=== PATIENT | male | born 1975 | race Caucasian/White ===

== ENCOUNTER 2017-03-18 11:45 | Emergency (ER) | payer OTHER ==
--- NOTE | 2017-03-18 13:28 | UC ---
brent Suero Timothy, scribed for Bell Haley MD on 03/18/17 at 1301 . Dizzy HPI HPI Summary: Sterling Robbins is a 41 yo male presenting to [facility] with fullness in his head, inability to focus, and slight numbness ad tingling to bilateral upper and lower extremities for the past 5 days. Pt states sx are intermittent. Pt without current sx but states feels anxious when sx occur. Pt denies cp, sob, abd pain. no n/v/d. No fevers, chills, rash. No YIP, vision changes. no ear congestion, sinus pressure, sore throat. No weakness. No change in speech, word finding. Pt was worked up in [place] 2 days ago for similar sx as well as palpitation. Upon presentation to [facility], pt was noted to be tachycardic. These sx resolved. Pt states had neg work-up. Pt drinks 1-2 caffeine today. Pt with some increased stress as moving to [place] with family - changing jobs. No other changes to activity or appetitie. Pt does exercise vigorously - rode bike yesterday without difficulty. He states his Sx resolved after his visit to the ER, but have reappeared this morning. No sx at present. He notes that Sx usually reappear during the late morning, before lunch. No change in diet. He denies any ear pain, sinus pressure, postnasal drip, rash, balance difficulty. He denies any travel out of the country. No OTC med. Pt notes his BP is high at baseline. States used to take meds for it but not current. No h/o cardiac dx, cva. No tobacco. Normal cholesterol. No family hx. No DM. He denies Hx of anxiety, or any recent trauma. PMHx. Pt medication list reviewed this visit. REviewed paperwork from [facility]: pt had cxr, cbc. cmp, tsh, ,trop, ekg - all reported neg. Pt was intially tachycardic to 136 upon arrival to ED - History Of Current Complaint Chief Complaint: UCDizziness Stated Complaint: DIZZY Time Seen by Provider: 03/18/17 12:51 Hx Obtained From: Patient Onset/Duration: Sudden Onset, Lasting Hours, Still Present Timing: Constant Severity Initially: Moderate Severity Currently: Moderate Character: Lightheaded, Dizzy Associated Signs And Symptoms: Positive: Nausea - Allergies/Home Medications Allergies/Adverse Reactions: Allergies Allergy/AdvReac Type Severity Reaction Status Date / Time No Known Allergies Allergy Verified 03/18/17 11:49 Home Medications: Home Medications NK [No Home Medications Reported] 03/18/17 [History Confirmed 03/18/17] PMH/Surg Hx/FS Hx/Imm Hx Previously Healthy: Yes Cardiovascular History: Hypertension - Surgical History Surgical History: None - Family History Known Family History: Negative: Cardiac Disease, Hypertension, Diabetes - Social History Occupation: Employed Full-time Lives: With Family Alcohol Use: Occasionally Substance Use Type: None Smoking Status (MU): Never Smoked Tobacco Review of Systems Constitutional: Negative Skin: Negative Eyes: Negative ENT: Negative Respiratory: Negative Cardiovascular: Negative Gastrointestinal: Nausea Genitourinary: Negative Motor: Negative Neurovascular: Negative Musculoskeletal: Negative Neurological: Paresthesia - bilateral upper and lower extremities, Numbness - bilateral upper and lower extremities, Other - inability to focus Psychological: Negative All Other Systems Reviewed And Are Negative: Yes Physical Exam Triage Information Reviewed: Yes Appearance: Well-Appearing, No Pain Distress, Well-Nourished, Other: - slightly anxious, improves through H+P Vital Signs: Initial Vital Signs Temp 98.3 F 03/18/17 11:51 Pulse 94 03/18/17 11:51 Resp 16 03/18/17 11:51 BP 179/92 03/18/17 11:51 Pulse Ox 100 03/18/17 11:51 Vital Signs Reviewed: Yes Eye Exam: Normal Eyes: Positive: Conjunctiva Clear. Negative: Conjunctiva Inflamed, Discharge ENT Exam: Normal ENT: Positive: Normal ENT inspection, Hearing grossly normal, Pharynx normal, TMs normal Dental Exam: Normal Neck exam: Normal Neck: Positive: Supple, Nontender, No Lymphadenopathy Respiratory Exam: Normal Respiratory: Positive: Chest non-tender, Lungs clear, Normal breath sounds, No respiratory distress, No accessory muscle use Cardiovascular Exam: Normal Cardiovascular: Positive: RRR, No Murmur, Pulses Normal, Other: - no bruits b/l Abdominal Exam: Normal Abdomen Description: Positive: Nontender, No Organomegaly, Soft Bowel Sounds: Positive: Present Musculoskeletal Exam: Normal Musculoskeletal: Positive: Strength Intact, ROM Intact, No Edema Neurological Exam: Normal Neurological: Positive: Alert, Muscle Tone Normal, Other: - NIH 0 CN 2- 12 intact and full Full aROM x 4 ext 2+ bicep, patellar without clonus full sensation x 4 b/l equal + FNF + heel shiin neg rhomberg + heel/toe walking no dysrthria Psychological Exam: Normal Skin Exam: Normal Re-Evaluation - Re-Evaluation First Eval Re-Evaluation Time: 13:21 Change: Unchanged Comment: Discussed possible courses of Tx. Pt is agreeable to be discharged. Dizzy Course/Dx - Course Course Of Treatment: Sterling Robbins is a 41 yo male presenting to [facility] with episodes of decreased ability to focus, and slight numbness/tingling to bilateral upper and lower extremities intermittently for the past 5 days. Pt with mild anxiousness during these episode Pt was seen in [place] ED and had standard labs, troponinin, TSH, EKG performed, and was d/c after 4 hours with Dx of palpitations with heart rate 136. Pt BP noted at 179/92, Pt advised to follow up with his PCP. His blood glucose is 115. Discussed differentials and possible courses of Tx with Pt and his at [facility]. Pt with a non concerning exam and currently no symptoms. Pt without known risk factors other than elevated bp. D/w pt and at length treatment options including transfer to ED for additional testing vs f/u PCP. Risks and benefits of both discussed. After much discussion, pt elected to schedule f/u with pcp. Pt and spouse advised 911 or ED if sx recur, any changes, or change of decision. Pt and comfortable and in agreement with plan - Differential Dx/Diagnosis Provider Diagnoses: intermittent paresthesias Discharge - Discharge Plan Condition: Stable Disposition: HOME Patient Education Materials: Hypertension (ED), Dizziness (ED) Referrals: Brennon Engle DO [Doctor of Osteopathy] - 2 Days Additional Instructions: Contact your doctor today to schedule a follow-up appointment this week - this is very important Stay well hydrated - drink plenty of non-alcoholic, non-caffinated beverages Your blood pressure was elevated today. It was also noted to be elevated at your hospital visit in [facility]. You must see your primary doctor and discuss treatment options If your symptoms return, you develop headache, vision changes, vomiting, fever, chills, rash, chest pain, shortness of breath or any other symptoms, contact 911 or go to the emergency department The documentation as recorded by the brent benito Timothy accurately reflects the service I personally performed and the decisions made by me, Bell Haley MD.
[2017-03-18 13:41] VITALS: BP 141/92
== END 2017-03-18 13:42 | disposition home or self-care (01) ==
LOC: UCEAST 11:45
DX: F41.9 Anxiety disorder, unspecified (principal); R11.0 Nausea; R20.2 Paresthesia of skin
CPT/HCPCS: 99201; G0463

== ENCOUNTER 2017-03-20 17:16 | Emergency (ER) | payer OTHER ==
[2017-03-20 18:48] LABS: Hematocrit 45 % (42-52); Hemoglobin 15.4 g/dl (14.0-18.0); Mean Corpuscular HGB Conc 34 g/dl (31-36); Mean Corpuscular Hemoglobin 32 pg (27-31); Mean Corpuscular Volume 93 fL (80-94); Mean Platelet Volume 8 um3 (7.4-10.4); Red Blood Count 4.81 10^6/ul (4.0-5.4); Red Cell Distribution Width 13 % (10.5-15); White Blood Count 9.3 10^3/ul (3.5-10.8)
[2017-03-20 19:06] LABS: Albumin 4.8 g/dL (3.2-5.2); BUN/Creatinine Ratio 13.6 (8-20); Calcium 9.7 mg/dL (8.6-10.3); EGFR African American 134.4 (>60); EGFR Non-African American 104.5 (>60); Globulin 2.5 g/dL (2-4); Potassium 3.7 mmol/L (3.5-5.0); Total Protein 7.3 g/dL (6.4-8.9)
[2017-03-20] MEDS ORDERED: Metoprolol Tartrate TAB* 25 MG PO ONE (20:18)
[2017-03-20] MEDS ORDERED: Iohexol 350* (CONTRAST) 500 ML MDV IV ONE (20:19)
--- NOTE | 2017-03-20 21:21 | RAD ---
Indication: Tachycardia. Recent travel. Assess for PE. Comparison: No relevant prior exams available on the [facility] PACS for comparison. Technique: Noncontrast CT vertex of skull through foramen magnum. Report: The sulci, ventricles, and basal cisterns are normal for age. Luke matter white matter differentiation is preserved without evidence for edema. No intra or extra axial hemorrhage, mass, or fluid collection detected. Unremarkable visualized orbital contents. Unremarkable calvarium and skull base. Unremarkable scalp. The visualized paranasal sinuses and mastoid air spaces are clear. IMPRESSION: Negative exam. Unenhanced head CT.
--- NOTE | 2017-03-20 21:27 | RAD ---
INDICATION: Tachycardia. Recent travel. Assess for pulmonary embolism. COMPARISON: None. TECHNIQUE: Multidetector CT images were obtained from the lung apices to the upper abdomen with 66 mL Omnipaque 300 IV contrast. Pulmonary angiogram protocol. Multiplanar reformation including with maximum intensity projection. REPORT: Clear lungs and pleural spaces. Negative for pneumothorax. Negative for thoracic lymphadenopathy, cardiomegaly, pericardial effusion. Normal diameter thoracic aorta without suspicious finding. No filling defects are identified from the main to the subsegmental pulmonary arteries to indicate presence of a pulmonary embolism. Unremarkable Limited images through the upper abdomen. Negative for suspicious thoracic osseous lesions. IMPRESSION: 1. No evidence for pulmonary embolism. 2. No evidence for acute intrathoracic disease.
[2017-03-20 21:35] VITALS: BP 139/94
[2017-03-20 22:50] LABS: TSH (Thyroid Stimulating Horm) 1.94 mcIU/mL (0.34-5.60)
[2017-03-20 22:57] LABS: Free T4 0.89 ng/dL (0.61-1.12)
--- NOTE | 2017-03-28 14:46 | ED ---
Raquel Suero Thomas, scribed for Vikas Forrester MD on 03/20/17 at 1850 . Hypertension - HPI Summary HPI Summary: The pt is a 41 y/o M accompanied by his MIKALA c/o high BP for the last 5 days. Earlier today, his BP was 210/130. He has been in 3 emergency rooms in the last five days. He flew to [place] 6 days ago. He was a patient at the [facility] ED five days ago, where he had a high pulse rate and was discharged. He had a D-dimer and Troponin taken there that were negative. Two days ago, he went to Urgent Care, where he was seen by Dr. Bell Haley and he was discharged home. Today, he went to his PCP Dr. Engle. Earlier in the day, his BP was 210/130 when measured at home. At Dr. You office, his BP was measured 130/80. Normally, the pts BP is 140/80. He is returning for cholesterol tests in 3 days. Today, he toured [place] with his friends and was walking for about an hour. When he returned home, his BP was elevated. He then took another BP reading, which revealed elevated BP. He denies any imaging that was performed recently. He has used his blood pressure problem manager prior to using it the last week. He is a new patient at [facility] (joined last fall). Pt additionally c/o racing heart rate (onset 5 days ago), doesnt feel well, lightheadedness (characterized as Im out of it), anxiety (attributed to many recent ED visits), and tingling in feet and fingers. Pt denies CP, SOB, blurred vision, SOB, trouble exerting self, nausea, and unsteadiness on feet. He had half a cup of coffee today. PMHx: HLD. PSHx: none. SHx: no smoking, occasional alcohol, no illicit drugs, no energy drinks. FHx: HTN, NE. He has never been to a therapist, has never had panic attacks, and has not had prior episodes of heart racing. 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 Ten years ago, he was on beta-denilson but was taken off around 10 years ago. - History of Current Complaint Chief Complaint: EDHypertension Stated Complaint: HIGH BLOOD PRESSURE Time Seen by Provider: 03/20/17 18:28 Hx Obtained From: Patient, Family/Field Irrigation Worker - in the room Onset/Duration: Started Days Ago - 5 days Timing: Intermittent Aggravating Factor(s): Nothing Alleviating Factor(s): Nothing Associated Signs & Symptoms: Anxiety/Stress - attributed to many recent ED visits, Numbness - fingers, feet, Tingling - fingers, feet, Other: - POS: racing heart rate (onset 5 days ago), doesnt feel well, lightheadedness ( characterized as Im out of it); NEG: CP, SOB, blurred vision, SOB, trouble exerting self, nausea, and unsteadiness on feet - Allergies/Home Medications Allergies/Adverse Reactions: Allergies Allergy/AdvReac Type Severity Reaction Status Date / Time No Known Allergies Allergy Verified 03/18/17 11:49 PMH/Surg Hx/FS Hx/Imm Hx Previously Healthy: No Endocrine/Hematology History: Denies: Hx Diabetes, Hx Thyroid Disease Cardiovascular History: Reports: Hx Hypercholesterolemia Denies: Hx Hypertension Respiratory History: Denies: Hx Asthma, Hx Chronic Obstructive Pulmonary Disease (COPD) GI History: Denies: Hx Ulcer - Surgical History Surgery Procedure, Year, and Place: none Infectious Disease History: No Infectious Disease History: Denies: Hx Hepatitis, Hx Human Immunodeficiency Virus (HIV), Traveled Outside the [place] in Last 30 Days - Family History Known Family History: Negative: Cardiac Disease, Hypertension, Diabetes - Social History Alcohol Use: Occasionally Alcohol Amount: 1-2 glasses wine a night Substance Use Type: Reports: None Smoking Status (MU): Never Smoked Tobacco Review of Systems Constitutional: Negative Negative: Fever, Chills Eyes: Negative Negative: Blurred Vision, Erythema - eyes ENT: Negative Negative: Sore Throat Positive: Palpitations - characterized as "racing heart rate", Other - POS: elevated BP (intermittent, began 5 days ago). Negative: Chest Pain Respiratory: Negative Negative: Shortness Of Breath, Cough, Other - NEG: trouble exerting self Gastrointestinal: Negative Negative: Abdominal Pain, Vomiting, Nausea Genitourinary: Negative Negative: dysuria, hematuria Musculoskeletal: Negative Negative: Myalgia, Edema - leg Skin: Negative Negative: Rash Neurological: Other - POS: tingling in feet and fingers, lightheadedness; NEG: dizziness, unsteadiness on feet Positive: Anxious - attributed to recent health problems All Other Systems Reviewed And Are Negative: Yes Physical Exam - Summary Physical Exam Summary: Constitutional: Well-developed, Well-nourished, Alert. (-) Distressed Skin: Warm, Dry HENT: Eyes: Conjunctiva normal Neck: Musculoskeletal ROM normal neck. (-) JVD, (-) Stridor, (-) Tracheal deviation Cardio: Rhythm regular, rate normal, Heart sounds normal; Intact distal pulses; The pedal pulses are 2+ and symmetric. Radial pulses are 2+ and symmetric. (-) Murmur Pulmonary/Chest wall: Effort normal. (-) Respiratory distress, (-) Wheezes, (-) Rales Abd: Soft. (-) Tenderness, ~(-) Distension, (-) Guarding, (-) Rebound Musculoskeletal: (-) Edema Lymph: (-) Cervical adenopathy Neuro: Alert, Oriented x3, Strength normal, Cranial nerves II-XII are grossly intact. (-) Dysmetria, (-) Nystagmus, (-) Ataxia by finger to nose testing, (-) Sensory deficit. Psych: Mood and affect Normal Triage Information Reviewed: Yes Vital Signs On Initial Exam: Initial Vitals Temp Pulse Resp BP Pulse Ox 98.4 F 98 20 155/107 96 03/20/17 17:20 03/20/17 17:20 03/20/17 17:20 03/20/17 17:20 03/20/17 17:20 Vital Signs Reviewed: Yes - Abelardo Coma Scale Coma Scale Total: 15 Diagnostics - Vital Signs Vital Signs Temp Pulse Resp BP Pulse Ox 03/20/17 18:33 105 24 99 03/20/17 17:20 98.4 F 98 20 155/107 96 - Laboratory Result Diagrams: 03/20/17 18:40 03/20/17 18:40 Lab Statement: Any lab studies that have been ordered have been reviewed, and results considered in the medical decision making process. - CT Brain CT CT Interpretation: No Acute Changes - Negative exam on unenhanced head CT. CT Interpretation Completed By: Radiologist CTA Chest/Thorax CT Interpretation: No Acute Changes - 1. No evidence for pulmonary embolism. 2. No evidence for acute intrathoracic disease CT Interpretation Completed By: Radiologist - EKG 18:35 Cardiac Rate: Tachycardia - 107 BPM EKG Interpretation: Sinus tachycardia. No STEMI Re-Evaluation - Re-Evaluation First Eval Re-Evaluation Time: 21:49 Change: Unchanged Comment: Discussed the patient's results with him. Hypertension Course/Dx - Course Assessment/Plan: The pt is a 41 y/o M accompanied by his MIKAAL c/o high BP for the last 5 days. Earlier today, his BP was 210/130. He has been in 3 emergency rooms in the last five days. He flew to [place] 6 days ago. He was a patient at the [facility] ED five days ago, where he had a high pulse rate and was discharged. He had a D-dimer and Troponin taken there that were negative. Two days ago, he went to Urgent Care, where he was seen by Dr. Bell Haley and he was discharged home. Today, he went to his PCP Dr. Engle. Earlier in the day, his BP was 210/130 when measured at home. At Dr. You office, his BP was measured 130/80. Normally, the pts BP is 140/80. He is returning for cholesterol tests in 3 days. Today, he toured [place] with his friends and was walking for about an hour. When he returned home, his BP was elevated. He then took another BP reading, which revealed elevated BP. He denies any imaging that was performed recently. He has used his blood pressure problem manager prior to using it the last week. He is a relatively new patient at [facility] (joined last fall). Pt additionally c/o racing heart rate (onset 5 days ago), doesnt feel well, lightheadedness (characterized as Im out of it), anxiety (attributed to many recent ED visits), and tingling in feet and fingers. Pt denies CP, SOB, blurred vision, SOB, trouble exerting self, nausea, and unsteadiness on feet. He had half a cup of coffee today. PMHx : HLD. PSHx: none. SHx: no smoking, occasional alcohol, no illicit drugs, no energy drinks. FHx: HTN, NE. He has never been to a therapist, has never had panic attacks, and has not had prior episodes of heart racing. 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 Ten years ago, he was on beta -denilson but was taken off around 10 years ago. In the ED course the patient was given Metoprolol. I did describe the side effects of Metoprolol to the patient. Bloodwork revealed MCH 32, Lymph % 13.1, Glucose 105. Brain CT showed negative exam on unenhanced head CT. CTA Chest/Thorax showed 1. No evidence for pulmonary embolism. 2. No evidence for acute intrathoracic disease. EKG revealed No STEMI, sinus tachycardia at 107 BPM. The patient is discharged home with follow up to Dr. You office in 3 days. He was diagnosed with HTN. He was instructed to return to the ED with new or worsening symptoms. - Diagnoses Provider Diagnoses: Hypertension Discharge - Discharge Plan Condition: Stable Disposition: HOME Prescriptions: Metoprolol Tartrate TAB* [Lopressor TAB*] 12.5 mg PO BID #14 tab Patient Education Materials: Hypertension (ED) Referrals: Brennon Engle DO [Doctor of Osteopathy] - 3 Days Additional Instructions: RETURN TO THE EMERGENCY DEPARTMENT FOR ANY NEW OR WORSENING SYMPTOMS. The documentation as recorded by the Raquel benito Thomas accurately reflects the service I personally performed and the decisions made by me, Vikas Forrester MD.
== END 2017-03-20 21:54 | disposition home or self-care (01) ==
LOC: ED 17:16
DX: I10 Essential (primary) hypertension (principal); R00.2 Palpitations
CPT/HCPCS: 36415; 70450; 71275; 80053; 83605; 84439; 84443; 84484; 85025; 93005; 99284; Q9967